=== PATIENT | female | born 1960 | race Two or more races ===

== ENCOUNTER 2016-10-10 20:21 | Inpatient (IN) | payer BC ==
[~2016-10-10] VITALS: Ht 160 cm; Wt 107.7 kg
[2016-10-10] MEDS ORDERED: HYDR12.53 PO (20:39)
[2016-10-10] MEDS ORDERED: LOSA25TA5 PO (20:39)
[2016-10-10] MEDS ORDERED: SERT25TA PO (20:39)
[2016-10-10] MEDS ORDERED: CARV6.252 PO (20:39)
[2016-10-10] MEDS ORDERED: hydrALAzine 20 MG/ML, 1ML IV PRN (21:30)
[2016-10-10] MEDS ORDERED: CEFTRIAXONE PMX 1GM/50ML 50 ML IV SCH (21:30)
[2016-10-10] MEDS ORDERED: ENALAPRILAT 1.25 MG/ML, 2ML IV PRN (21:30)
[2016-10-10] MEDS ORDERED: LABETALOL 5MG/ML, 20ML IVPush PRN (21:30)
[2016-10-10] MEDS ORDERED: CEFTRIAXONE PMX 1GM/50ML 50 ML ONE (21:38)
[2016-10-10] MEDS ORDERED: DOCUSATE 100 MG CAPSULE PO PRN (22:00)
[2016-10-10] MEDS ORDERED: ENOXAPARIN 40 MG/0.4 ML SQ SCH (22:00)
[2016-10-10] MEDS ORDERED: POLYETHYLENE GLYCOL 17 GM PACKET PO PRN (22:00)
[2016-10-10] MEDS ORDERED: ACETAMINOPHEN 325 MG TABLET PO PRN (22:00)
[2016-10-10] MEDS ORDERED: morphine SULFATE 10 MG/ML, 1ML IVPush PRN (22:00)
[2016-10-10] MEDS ORDERED: ONDANSETRON 2MG/ML, 2ML IVPush PRN (22:00)
[2016-10-10 22:40] VITALS: BP_SYST 150; BP_SYST 180; BP_DIAS 77
[2016-10-10 23:19] LABS: IS PT STATUS REG ER OR PRE ER? NO
[2016-10-10] MEDS: HYDROcodone/APAP 5/325 TABLET PO PRN (23:23)
[2016-10-10 23:30] VITALS: BP 154/74
[2016-10-11 03:26] VITALS: BP 124/61
[2016-10-11 03:43] LABS: IS PT STATUS REG ER OR PRE ER? NO
[2016-10-11] MEDS ORDERED: PNEUMOCOCCAL 23 VACCINE IM-VACC ONE (04:00)
[2016-10-11] MEDS ORDERED: ASPIRIN 325 MG TABLET EC PO SCH (06:00)
[2016-10-11 07:06] VITALS: BP_SYST 160; BP_SYST 161; BP_SYST 164; BP_DIAS 65; BP_DIAS 90
[2016-10-11] MEDS: SENNA/DOCUSATE TABLET PO SCH ×3 (08:54→09:00)
[2016-10-11] MEDS ORDERED: HYDROCHLOROTHIAZIDE 12.5 MG CAPSULE PO SCH (09:00)
[2016-10-11] MEDS ORDERED: SERTRALINE 50MG TABLET PO SCH (09:00)
[2016-10-11] MEDS ORDERED: CARVEDILOL 6.25 MG TABLET PO SCH (09:00)
[2016-10-11] MEDS ORDERED: LOSARTAN 25MG TABLET PO SCH (09:00)
[2016-10-11] MEDS ORDERED: SODIUM CHLORIDE FLUSH 3ML SYRINGE IVF SCH (09:00)
[2016-10-11] MEDS: HYDROcodone/APAP 5/325 TABLET PO PRN (12:12)
== END 2016-10-11 14:45 | disposition home or self-care (01) | DRG 281 ==
LOC: SUATTDRO 21:14 → ED 21:44 → EDIP 21:45 → 5SO 22:34 → DCLOUNGE 10-11 14:32
PROVIDERS: ADMIT Family Medicine; ATTEND Family Medicine
DX: I21.4 Non-ST elevation (NSTEMI) myocardial infarction (principal); N39.0 Urinary tract infection, site not specified; Z68.41 Body mass index [BMI] 40.0-44.9, adult; I50.32 Chronic diastolic (congestive) heart failure; I11.0 Hypertensive heart disease with heart failure; F32.9 Major depressive disorder, single episode, unspecified; Z86.711 Personal history of pulmonary embolism; E66.01 Morbid (severe) obesity due to excess calories; I49.3 Ventricular premature depolarization
CPT/HCPCS: 36415; 83735; 84484; 87324; 90732; 93005; 93306; 96365; 96372; J0696; J1650